=== PATIENT | male | born 1950 | race Caucasian/White ===

== ENCOUNTER 2016-08-18 12:12 | Inpatient (IN) | payer MEDICARE, BC ==
[2016-08-18] VITALS (7 sets, daily range): BP systolic 115–137; BP diastolic 65–89
[~2016-08-18] VITALS: Ht 177.8 cm; Wt 99.8 kg
[2016-08-18] MEDS ORDERED: IV SET PRIMARY 1 EA INFUS.SET MC ONE (12:22)
[2016-08-18] MEDS ORDERED: IV NS 0.9% 1,000 ML ONE ×2 (12:22→14:05)
[2016-08-18] MEDS ORDERED: IV NS 0.9% 1,000 ML BAG IV ONE ×2 (12:30→14:00)
[2016-08-18 12:40] LABS: BASOPHILS # (AUTO) 0.1 /CMM (0.0-0.2); BASOPHILS % (AUTO) 0.7 % (0.0-2.0); DIFF TOTAL % 100 %; EOSINOPHILS # (AUTO) 0.1 /CMM (0.0-0.7); EOSINOPHILS % (AUTO) 0.6 % (0.0-6.0); HEMATOCRIT 43 % (39-51); HEMOGLOBIN 14.4 g/dL (13.5-17.5); LYMPHOCYTES # (AUTO) 2.7 /CMM (0.8-4.8); LYMPHOCYTES % (AUTO) 25.2 % (20.0-44.0); MEAN CORPUSCULAR HEMOGLOBIN 31 PG (26.0-33.0); MEAN CORPUSCULAR HGB CONC 33 g/dl (31.0-36.0); MEAN CORPUSCULAR VOLUME 93 fL (80-96); MONOCYTES # (AUTO) 0.9 /CMM (0.1-1.30); MONOCYTES % (AUTO) 8.4 % (2.0-12.0); NEUTROPHILS # (AUTO) 7.1 /CMM (1.8-8.9); NEUTROPHILS % (AUTO) 65.1 % (43.0-81.0); PLATELET COUNT (AUTO) 241 /CMM (150-450); RED BLOOD CELL COUNT(AUTO) 4.63 MIL/uL (4.5-6.0); WHITE BLOOD COUNT (AUTO) 10.8 K/uL (4.3-11.0)
[2016-08-18 12:52] LABS: ANION GAP 16 (5-14); CALCIUM, SERUM 8.5 mg/dL (8.5-10.1); CARBON DIOXIDE 25 mmol/L (21-32); CHLORIDE 106 mmol/L (98-107); CREATININE 1.5 mg/dL (0.6-1.3); GFR 47 mL/min (>60); GLUCOSE 166 mg/dL (74-106); POTASSIUM 4.1 mmol/L (3.5-5.1); SODIUM SERUM 142 mmol/L (136-145); UREA NITROGEN, BLOOD 23 mg/dL (7-18)
[2016-08-18 13:01] LABS: INR 0.99 (0.87-1.13); PROTHROMBIN TIME 10.7 SECS (9.5-12.7); TROPONIN I < 0.017 ng/mL (0.00-0.056)
[2016-08-18 13:33] LABS: CANNABINOID, URINE POSITIVE (NEGATIVE); PHENCYCLIDINE SCREEN,URINE NEGATIVE (NEGATIVE)
[2016-08-18 13:39] LABS: ALANINE AMINOTRANSFERASE 36 U/L (12-78); ALBUMIN 3.9 g/dL (3.4-5.0); ASPARTATE AMINOTRANSFERASE 29 U/L (15-37); BILIRUBIN,DIRECT 0.1 mg/dL (0.0-0.2); BILIRUBIN,TOTAL 0.5 mg/dL (0.2-1.0); INDIRECT BILIRUBIN 0.4 mg/dL (0.0-1.1)
[2016-08-18 13:40] LABS: ACETAMINOPHEN 0 ug/ml (10-30); SALICYLATE 0.3 mg/dL (2.8-20.0)
[2016-08-18] MEDS ORDERED: METO-304 PO (13:58)
[2016-08-18] MEDS ORDERED: ATOR80TA PO (13:58)
[2016-08-18] MEDS ORDERED: FENO145T20 PO (13:58)
[2016-08-18] MEDS ORDERED: AMLO5TAB2 PO (13:58)
[2016-08-18] MEDS ORDERED: Z GUARD REMEDY 2 OZ OINT TP PRN (14:30)
[2016-08-18] MEDS ORDERED: MAGNESIUM HYDROXIDE 30 ML UDC PO PRN (14:30)
[2016-08-18] MEDS ORDERED: ONDANSETRON HCL/PF 4 MG/2 ML VIAL IVP PRN (14:30)
[2016-08-18] MEDS ORDERED: MAG HYDROX/AL HYDROX/SIMETH 30 ML UDC PO PRN (14:30)
[2016-08-18] MEDS ORDERED: HYDROCODONE/APAP 5/325MG 1 EACH TABLET PO PRN (14:30)
[2016-08-18] MEDS ORDERED: ZOLPIDEM TARTRATE 5 MG TABLET PO PRN (14:30)
[2016-08-18] MEDS ORDERED: ACETAMINOPHEN 325 MG TABLET PO PRN (14:30)
[2016-08-18 14:51] LABS: ADD UA MICROSCOPIC NO; KETONES,URINE NEGATIVE (NEGATIVE); LEUKOCYTE ESTERASE ,URINE NEGATIVE (NEGATIVE)
[2016-08-18] MEDS ORDERED: IV SET PRIMARY PUMP SET 1 EA INFUS.SET MC ONE (15:13)
[2016-08-18] MEDS: ENOXAPARIN SODIUM 40 MG/0.4 ML DISP.SYRIN SQ SCH (15:26)
[2016-08-18] MEDS: IV 1/2NS 1000 ML 1,000 ML IV PRN (15:30)
[2016-08-18] MEDS: MECLIZINE HCL 25 MG TABLET PO SCH ×3 (17:39→20:37)
[2016-08-18] MEDS ORDERED: ATORVASTATIN 40 MG TABLET PO SCH (22:00)
[2016-08-19] VITALS (9 sets, daily range): BP systolic 125–132; BP diastolic 70–81
[2016-08-19] MEDS: MECLIZINE HCL 25 MG TABLET PO SCH ×4 (01:01→08:06)
[2016-08-19] MEDS: IV 1/2NS 1000 ML 1,000 ML IV PRN (01:57)
[2016-08-19] MEDS ORDERED: PANTOPRAZOLE 40 MG TABLET.DR PO SCH (07:30)
[2016-08-19 07:31] LABS: BASOPHILS % (AUTO) 0.4 % (0.0-2.0); DIFF TOTAL % 100 %; EOSINOPHILS # (AUTO) 0.2 /CMM (0.0-0.7); EOSINOPHILS % (AUTO) 2.8 % (0.0-6.0); HEMATOCRIT 40 % (39-51); HEMOGLOBIN 13.6 g/dL (13.5-17.5); LYMPHOCYTES # (AUTO) 1.5 /CMM (0.8-4.8); MEAN CORPUSCULAR HEMOGLOBIN 32 PG (26.0-33.0); MEAN CORPUSCULAR HGB CONC 34 g/dl (31.0-36.0); MEAN CORPUSCULAR VOLUME 94 fL (80-96); MONOCYTES # (AUTO) 0.4 /CMM (0.1-1.30); MONOCYTES % (AUTO) 7.7 % (2.0-12.0); NEUTROPHILS # (AUTO) 3.3 /CMM (1.8-8.9); NEUTROPHILS % (AUTO) 61.1 % (43.0-81.0); PLATELET COUNT (AUTO) 204 /CMM (150-450); RED BLOOD CELL COUNT(AUTO) 4.28 MIL/uL (4.5-6.0); WHITE BLOOD COUNT (AUTO) 5.4 K/uL (4.3-11.0)
[2016-08-19 07:37] LABS: CALCIUM, SERUM 8.2 mg/dL (8.5-10.1); CREATININE 1.5 mg/dL (0.6-1.3); PHOSPHORUS 2.3 mg/dL (2.5-4.9)
[2016-08-19 07:38] LABS: THYROID STIMULATING HORMONE 4.279 uIU/mL (0.358-3.74)
[2016-08-19] MEDS: ENOXAPARIN SODIUM 40 MG/0.4 ML DISP.SYRIN SQ SCH (08:08)
[2016-08-19] MEDS ORDERED: METOPROLOL SUCCINATE 50 MG TAB.SR.24H PO SCH (09:00)
[2016-08-19] MEDS ORDERED: FENOFIBRATE NANOCRYS (145 MG) 145 MG TABLET PO SCH (09:00)
[2016-08-19] MEDS ORDERED: AMLODIPINE BESYLATE 5 MG TABLET PO SCH (09:00)
[2016-08-19] MEDS ORDERED: DIAZEPAM 5 MG/ML 2 ML DISP.SYRIN IV ONE (10:30)
[2016-08-19] MEDS ORDERED: K PHOS NEUTRAL 250 MG TABLET PO ONE (16:00)
[2016-08-19] MEDS ORDERED: MECL25TA3 PO (16:29)
== END 2016-08-19 16:40 | disposition home or self-care (01) | DRG 74 ==
LOC: ER 12:13 → MEDSG2 14:09 → TELE 18:35 → MED 18:44 → TELE 18:56
DX: G90.8 Other disorders of autonomic nervous system (principal); R42 Dizziness and giddiness; F12.90 Cannabis use, unspecified, uncomplicated; E78.5 Hyperlipidemia, unspecified; E66.9 Obesity, unspecified; Z85.038 Personal history of other malignant neoplasm of large intestine; I12.9 Hypertensive chronic kidney disease with stage 1 through stage 4 chronic kidney disease, or unspecified chronic kidney disease; N18.9 Chronic kidney disease, unspecified; E03.9 Hypothyroidism, unspecified; E86.0 Dehydration; H91.92 Unspecified hearing loss, left ear
CPT/HCPCS: 36415; 70450-TC; 70551-TC; 71010-TC; 80048-TC; 80061-TC; 80076-TC; 80305; 81000-TC; 83735-TC; 84100-TC; 84439-TC; 84443-TC; 84484-TC; 85025-TC; 85730-TC; 87081-TC; 87400; 97001-TC; A4606; G6038-TC; G6039-TC; G6040-TC; J1650; J3360; J3490; J7030; J8597; Z7610